=== PATIENT | female | born 1960 | race Caucasian/White ===

== ENCOUNTER 2016-09-23 12:39 | Emergency (ER) | payer OTHER ==
--- NOTE | 2016-09-23 12:54 | EDM.PDOC ---
ED HPI Skin/Rash - General Chief Complaint: Laceration Stated Complaint: CUT LEFT THUMB; [id number] Time Seen by Provider: 09/23/16 12:50 Source: Reports: Patient History Limitations: Reports: No limitations - History of Present Illness INITIAL COMMENTS - FREE TEXT/NARRATIVE: Pt states that she was cutting some nip ties and cut her left thumb in the process. 2 cm laceration to left thumb. bleeding controlled Symptom Onset Date: 09/23/16 Symptom Onset Time: 12:00 Timing: Reports: still present Location, Skin: Reports: upper extremity, left Quality: Reports: Ache, Throbbing Severity: moderate Known Identified Source: yes Place of Occurrence: home Associated Symptoms: Reports: no other symptoms - Related Data Allergies Allergy/AdvReac Type Severity Reaction Status Date / Time No Known Allergies Allergy Verified 09/23/16 12:51 Home Meds: Ambulatory Orders Medication Instructions Recorded Confirmed . [No Known Home Meds] 09/23/16 09/23/16 ED ROS GENERAL - Review of Systems Review Of Systems: See Below Skin: Reports: wound ED EXAM, SKIN/RASH Exam: See Below Exam Limited By: No limitations General Appearance: alert, WD/WN, no apparent distress Skin: Warm, Dry, Intact, Normal color, No rash, Wound/incision (2 cm laceration to left distal thumb) ED SKIN PROCEDURES - Laceration/Wound Repair Left Distal Finger Lac/wound length in cm: 2 Appearance: subcutaneous, linear, mildly contaminated Distal NVT: neuro & vascular intact, no tendon injury Anesthetic type: local Local anesthesia - Lidocaine (Xylocaine): 1% plain Local anesthetic volume: 2cc Skin prep: chlorhexidine (hibiciens) Saline irrigation (cc's): 2 Exploration/Debridement/Repair: no foreign material found Closed with: sutures Suture size: other (5-0) # of sutures: 8 Suture type: nylon, interrupted, simple Drain placement: No Sterile dressing applied: nurse Tetanus status addressed: Yes Complications: No Course - Vital Signs Last Recorded V/S: Last Vital Signs Temp 97.4 F 09/23/16 12:53 Pulse 86 09/23/16 12:53 Resp 20 09/23/16 12:53 BP 135/85 09/23/16 12:53 Pulse Ox 100 09/23/16 12:53 - Orders/Labs/Meds Orders: Active Orders 24 hr Category Date Time Status Vaccines to be Administered [RC] PER UNIT ROUTINE Care 09/23/16 12:55 Active Meds: Medications Discontinued Medications Generic Name Dose Route Start Last Admin Trade Name Jillian PRN Reason Stop Dose Admin Bacitracin 1 dose 09/23/16 12:56 09/23/16 13:08 Bacitracin Oint 1 Gm TOP 09/23/16 12:57 1 dose ONETIME ONE Administration Diphtheria/Tetanus/Acell Pertussis 0.5 ml 09/23/16 12:55 09/23/16 13:07 Adacel IM 09/23/16 12:56 0.5 ml .ONCE ONE Administration Lidocaine HCl 10 ml 09/23/16 12:55 09/23/16 13:09 Xylocaine 1% INJECT 09/23/16 12:56 Not Given ONETIME ONE Lidocaine HCl Confirm 09/23/16 13:03 09/23/16 13:09 Xylocaine-Mpf 1% Administered 09/23/16 13:04 30 ml Dose Administration 30 ml .ROUTE .STK-MED ONE Departure - Departure Time of Disposition: 13:57 Disposition: Home, Self-Care 01 Condition: good Clinical Impression: Laceration Instructions: Laceration Care, Adult, [id number], Stitches, Yvonne, or Adhesive Wound Closure, [id number], Diphtheria/Tetanus Toxoids; Pertussis Vaccine, DTP injection Forms: ED Department Discharge Additional Instructions: return in 1 week to have stitches removed. keep wound clean and dry. may use antibiotic ointment if preferred. - My Orders Last 24 Hours: My Active Orders 09/23/16 12:55 Vaccines to be Administered [RC] PER UNIT ROUTINE - Assessment/Plan Last 24 Hours: My Active Orders 09/23/16 12:55 Vaccines to be Administered [RC] PER UNIT ROUTINE
[2016-09-23] MEDS ORDERED: Lidocaine 1% 10 ML MDV INJECT ONE (12:55)
[2016-09-23] MEDS ORDERED: Diphtheria,Pertussis(Acell),Tetanus Vaccine 0.5 ML SDV IM ONE (12:55)
[2016-09-23] MEDS ORDERED: Bacitracin Oint 1 GM U/D Packet TOP ONE (12:56)
[2016-09-23 12:58] VITALS: BP 135/85
[2016-09-23] MEDS ORDERED: Lidocaine 1% 30 ML SDV ONE (13:03)
== END 2016-09-23 14:05 | disposition home or self-care (01) ==
LOC: DL.ED 12:39
DX: S61.012A Laceration without foreign body of left thumb without damage to nail, initial encounter (principal); Z23 Encounter for immunization; W26.0XXA Contact with knife, initial encounter; Y92.009 Unspecified place in unspecified non-institutional (private) residence as the place of occurrence of the external cause
CPT/HCPCS: 12001; 90715; 99282